=== PATIENT | female | born 1955 | race Caucasian/White ===

== ENCOUNTER → 2016-09-14 | Outpatient (CLI) | payer OTHER ==
--- NOTE | 2016-09-14 17:12 | DX ---
Chest, Two Views at 1423 hours History: Cough. Comparison: May 2015 Findings: Cardiac silhouette is within normal range. Left subclavian Mediport catheter in superior ve na cava. No pneumothorax. Right seventh rib fracture mid axillary line with callus formation new sinc e May 2015. Right lower lobe 9 mm pulmonary nodule appears new. Thoracolumbar levoscoliosis. Bila teral peribronchial thickening. No pneumonia, congestive heart failure, pleural effusion, or pneumoth orax. Impression: 1. Bronchitis. 2. Subacute right rib fracture. 3. Right lower lobe 9 mm new pulmonary nodule. 4. Mediport catheter without pneumothorax. 5. Recommend CT chest for further evaluation. 6. No definite pneumonia. A Follow-Up Required message has been communicated to Chetna Llamas MD via the [employer] Result system on 09/14/2016 17:11, Message ID [id number].
== END ==
LOC: FIMAGING 14:10
PROVIDERS: ATTEND Internal Medicine Hematology & Oncology
DX: J40 Bronchitis, not specified as acute or chronic (principal); S22.31XA Fracture of one rib, right side, initial encounter for closed fracture; R91.1 Solitary pulmonary nodule